=== PATIENT | female | born 1985 | race Caucasian/White ===

== ENCOUNTER 2023-01-10 05:01 | Emergency (ER) | payer MEDICAID, SELFPAY ==
[2023-01-10 05:02] VITALS: BP 123/64; PULSE 87; RESP 15; TEMP 36.2; O2SAT 100; BMI 39.0
--- NOTE | 2023-01-10 05:24 | EDS_ITS ---
HPI History of Present Illness Chief Complaint: Back Detail of Chief Complaint: Acute episode of chronic back pain radiating down her right leg. Informant: patient and spouse/S.O. Onset/Context/Timing Onset: Today and Hours Context: Sudden Onset Injury: bending Timing: Continuous Quality: Sharp and Burning Current Severity: Severe Maximum Severity: Severe Worsened by: improves with Movement Relieved by: Remaining Still Associated Symptoms Associated Symptoms: Radiation to Right Leg; Negative for Numbness, Tingling, Radiation to Left Leg, Fever, Abdominal Pain, Unable to Ambulate, Unable to Transfer, Urinary Retention, Urinary Incontinence, Constipation or Fecal Incontinence Narrative Narrative: 37-year-old female history of known lumbar herniated disc that was diagnosed 1 to 2 years ago. She has had this worked up. She is seeing operating systems specialist. 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 She has been undergoing physical therapy and they are trying to prevent surgery. Occasionally she gets a flare up. Said today just kind of felt like it was going to flareup. She denies any fall injury or trauma. In the middle night she got up this morning to go the bathroom and when she went to sit on the toilet she she had acute pain in her lower back radiating down her right leg. No fever. No trauma. No bowel or bladder incontinence. Similar to her prior episodes. She denies any weakness or numbness to her lower extremities. It is worse to move. Prior similar symptoms: Yes Recent Illness/Hospitalization: No PFSH PFS Medical History Herniated vertebral disc Spinal stenosis Allergy/AdvReac Type Severity Reaction Status Date / Time No Known Allergies Allergy Verified 01/10/23 05:08 Social History Smoking Status: Unknown if ever smoked ROS ROS ED ROS Narrative Back pain. Review of Systems ROS Unobtainable: Denies due to encephalopathy Constitutional Constitutional ED: Denies chills or fever(s) Eyes Eyes: Denies blurry vision ENT ENT ED: Denies ear pain Respiratory/Chest Respiratory/Chest: Denies dyspnea Gastrointestinal Gastrointestinal: Denies abdominal pain, constipation, diarrhea, melena, nausea or vomiting Genitourinary Genitourinary ED: Denies dysuria or hematuria Musculoskeletal Musculoskeletal: Reports back pain; Denies arthralgias, myalgias or neck pain Integumentary Denies abscess Neurologic Neurologic: Denies headache(s) Psychiatric Psychiatric: Denies anxiety or depression Endocrine Endocrinology: Denies cold intolerance Hematologic/Lymphatic Hematologic/Lymphatic: Denies easy bleeding or easy bruising Allergic/Immunologic Allergic/Immunologic ED: Denies mouth swelling or tongue swelling EXAM Physical Exam Narrative Exam Narrative: 37-year-old female accompanied by her . Vital signs are stable afebrile. She is tearful and complaining of lower back pain radiating to her right buttock and down her right hamstring. She is lying on her left side. H EENT exam unremarkable. Neck nontender. Lungs clear to auscultation. Heart regular rhythm rate about 85 no murmur. Chest wall nontender. Abdomen soft nontender. Moving all 4 extremities. She has pain with movement of her right leg. Dorsi plantarflexion intact. No cauda equina. No saddle anesthesia. Normal medial thigh sensation. She has tenderness on her lumbar spine and right SI joint. There is no signs of trauma. No redness or warmth. No bruising. Neurologically she is awake and alert. No focal motor deficits. No loss of sensation in her lower extremities. Again no cauda equina or saddle anesthesia. Const Vital Signs: 01/10/23 05:02 Temperature 97.2 F L Temperature Source Temporal Pulse Rate 87 Respiratory Rate 15 Blood Pressure 123/64 H Blood Pressure Mean 83 Pulse Ox 100 Oxygen Delivery Method Room Air Positive well nourished, well developed and obese; Negative for cachectic, contractures or unkempt General Appearance ED: well developed and NAD; Negative for unkempt, cachectic, contractures or pallor Nutritional Appearance: obese; Negative for cachectic HEENT Reports moist mucous membranes; Denies dry mucous membranes Negative for trauma or tenderness Mouth ED: No dry mucous membranes Mouth: No dry mucous membranes Eyes PERRL and EOMs intact bilaterally General Eye ED: Negative for pale conjunctiva, scleral icterus or other Neck no lymphadenopathy, supple and no JVD General: Negative for tenderness Thyroid: Negative for other Resp normal respiratory effort and clear to auscultation bilaterally Effort and Inspection: Negative for pain with movement Auscultation: Negative for rales, rhonchi, wheezes or diminished lung sounds Cardio regular rate, regular rhythm, S1 normal heart sound, S2 normal heart sound and no murmurs Palpation: Negative for palpable S3 Rate: Negative for bradycardia or tachycardic Rhythm: Negative for abnormal rhythm Bruits: Negative for other GI normal to inspection, nondistended, normoactive bowel sounds, soft to palpation, non-tender, non-distended and no masses Inspection: Negative for abdominal distention Palpation: Negative for tender, guarding, mass, pulsatile mass or rebound tenderness present Back/Spine normal to inspection; Negative for no thoracic nor lumbar tenderness Back/Spine Narrative: Lumbar tenderness. Right SI tenderness. Positive straight leg raise on the right. General Back: Negative for CVA tenderness Cervical Spine: Negative for cervical spine tenderness Thoracic Spine / Upper Back: Negative for paraspinal muscle tenderness Lumbar Spine / Lower Back: straight leg raise positive right Extremity normal to inspection and no clubbing, cyanosis or edema General Extremety ED: Negative for edema or tenderness General Extremity: Negative for edema Neuro oriented x3 and no sensory deficits noted Sensorium / Orientation: alert; Negative for confused, lethargic or stuporous Sensory Exam: No other Motor Exam: strength 5/5 throughout; Negative for strength abnormal Psych mental status grossly normal Appearance: Negative for unkempt Attitude: No agitated Mood & Affect: tearful; Negative for depressed or sad Skin no rashes or lesions noted and no wounds General Skin Exam: Negative for jaundice or pallor Lesions: No lesion noted Rashes: No rashes noted Trauma: Negative for abrasion Wounds: Negative for wounds noted MDM MDM MDM Narrative Medical decision making narrative: 37-year-old with known history of lumbar herniated disc. Has had this problem for 1 to 2 years. Has been undergoing physical therapy and seeing pain management. She has never had any back surgery and is trying to prevent it. Tonight when she went to sit on the toilet she had exacerbation of her pain radiating down her right leg. She is neurovascularly intact. There is no cauda equina. Is been no trauma. She does not need any imaging tonight. She will be treated with IV Dilaudid, Zofran and Toradol for pain and to prevent nausea. She will be reassessed. Discharge Plan Triage Chief Complaint: Back ED Provider: Lloyd Oro
[2023-01-10] MEDS: Ondansetron 4 MG/2 ML Vial IV (05:33)
[2023-01-10] MEDS: Ketorolac 30 MG/ML Syringe IV (05:34)
[2023-01-10] MEDS: HYDROmorphone 1 MG/ML Syringe IV (05:34)
[2023-01-10] MEDS: HYDROmorphone 0.5 MG/0.5 ML SYRINGE IV (06:17)
== END 2023-01-10 07:08 | disposition home or self-care (01) ==
PROVIDERS: Emergency Provider Emergency Medicine; Visit Provider Emergency Medicine
DX: G89.29 Other chronic pain (principal); M54.9 Dorsalgia, unspecified; M79.604 Pain in right leg; E66.9 Obesity, unspecified
CPT/HCPCS: 96374; 96375; 96376; 99285; A4216; J2405